=== PATIENT | male | born 1980 | race African-American/Black ===

== ENCOUNTER 2016-05-17 13:42 | Emergency (ER) | payer OTHER ==
[2016-05-17] MEDS ORDERED: NS 0.9% 1000 ML* 2,000 ML IV ONE (14:26)
[2016-05-17] MEDS ORDERED: Metoclopramide IV* 5 MG/ML 2 ML VIAL IV ONE (14:26)
[2016-05-17] MEDS ORDERED: diPHENhydraMINE IV* 50 MG/ML 1 ml VIAL (BENADRYL) IM ONE (14:26)
[2016-05-17] MEDS ORDERED: Ondansetron INJ* 2 MG/ML VIAL IV ONE (14:26)
[2016-05-17] MEDS ORDERED: Magnesium Sulfate 1 GM IV* 1 GM/100 ML BAG IV ONE (14:28)
[2016-05-17 14:40] LABS: Hematocrit 47 % (42-52); Mean Corpuscular HGB Conc 32 g/dl (31-36); Mean Corpuscular Hemoglobin 27 pg (27-31); Mean Corpuscular Volume 83 fL (80-94); Mean Platelet Volume 8 um3 (7.4-10.4); Red Blood Count 5.63 10^6/ul (4.0-5.4); Red Cell Distribution Width 13 % (10.5-15); White Blood Count 6.7 10^3/ul (3.5-10.8)
[2016-05-17 14:54] LABS: ALT 22 U/L (7-52); AST 18 U/L (13-39); Albumin 4.7 g/dL (3.2-5.2); Alkaline Phosphatase 89 U/L (34-104); Amylase 56 U/L (29-103); Anion Gap 8 mmol/L (2-11); BUN/Creatinine Ratio 12.2 (8-20); Blood Urea Nitrogen 14 mg/dL (6-24); C Reactive Protein 3.63 mg/L (< 5.00); CO2 Carbon Dioxide 31 mmol/L (22-32); Calcium 10.1 mg/dL (8.6-10.3); Chloride 97 mmol/L (101-111); EGFR African American 94.2 (>60); EGFR Non-African American 73.2 (>60); Globulin 3.6 g/dL (2-4); Glucose 89 mg/dL (70-100); Lipase < 10 U/L (11.0-82.0); Potassium 3.8 mmol/L (3.5-5.0); Sodium 136 mmol/L (133-145); Total Protein 8.3 g/dL (6.4-8.9)
--- NOTE | 2016-05-17 14:59 | RAD ---
HISTORY: Headache after weightlifting COMPARISONS: None TECHNIQUE: Multiple contiguous axial CT scans were obtained of the head without intravenous contrast. FINDINGS: HEMORRHAGE/INFARCT: There is parenchymal hemorrhage along the splenium the corpus callosum. There is extension into the right lateral ventricle., And into the third and fourth ventricles MASSES/SHIFT: There is no mass or shift. EXTRA-AXIAL SPACES: There are no extra-axial fluid collections. SULCI AND VENTRICLES: As noted above, there is intraventricular hemorrhage within the right lateral ventricle and into the third and fourth ventricles CEREBRUM: As noted above, there is hemorrhage tracking along the splenium of the corpus callosum BRAINSTEM: There are no focal parenchymal abnormalities. CEREBELLUM: There are no focal parenchymal abnormalities. VESSELS: The vessels are grossly normal. PARANASAL SINUSES: The paranasal sinuses are clear. ORBITS: The orbits are unremarkable. BONES AND SOFT TISSUE: No bone or soft tissue abnormalities are noted. OTHER: None IMPRESSION: 1. 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 THE DIFFERENTIAL INCLUDES ANEURYSMAL HEMORRHAGE. RECOMMEND FURTHER EVALUATION WITH CT ANGIOGRAPHY OF THE HEAD. 2. PRELIMINARY FINDINGS WERE DISCUSSED WITH DR. FUCHS AT APPROXIMATELY 2:55 PM ON MAY 17, 2016.
[2016-05-17] MEDS ORDERED: Iohexol 350* (CONTRAST) 500 ML MDV IV ONE (15:07)
--- NOTE | 2016-05-17 15:40 | ED ---
Headache - HPI Summary HPI Summary: Patient is incarcerated. He was lifting weights two days ago when he felt a sharp pain in his head. He has since had "the worst RUIZ he has ever had". He denies a history of headaches. He has been staying in bed in shelter, and not participating in any activities. He has felt nauseous and had an upset stomach as well. He denies fever, chills, neurological defects, vision changes, or neck pain. - History Of Current Complaint Chief Complaint: EDHeadache Stated Complaint: ABD PAIN Time Seen by Provider: 05/17/16 13:55 Hx Obtained From: Patient Onset/Duration: Sudden Onset, Started days ago - 2, Still Present Initially Headache Was: "Worst Headache Ever" Currently Pain Is: Severe Timing: Constant Character: Sharp, Pressure - frontal Location of Headache: Frontal Aggravating Factor: Exertion, Position Change, Bright Lights Allevating Factors: Nothing Associated Signs And Symptoms: Nausea - Allergies/Home Medications Allergies/Adverse Reactions: Allergies Allergy/AdvReac Type Severity Reaction Status Date / Time No Known Allergies Allergy Verified 05/17/16 16:20 Home Medications: Home Medications Ibuprofen TAB* [Motrin TAB* 800 MG] 800 mg PO BID PRN 05/17/16 [History Confirmed 05/17/16] LoraTADine TAB(NF) [Claritin TAB(NF)] 10 mg PO DAILY 05/17/16 [History Confirmed 05/17/16] PMH/Surg Hx/FS Hx/Imm Hx Previously Healthy: Yes Endocrine/Hematology History: Denies: Hx Diabetes Infectious Disease History: Denies: Traveled Outside the [place] in Last 30 Days - Family History Known Family History: Positive: None - Social History Occupation: Unemployed - incarcerated Lives: [facility] - shelter Alcohol Use: None Substance Use Type: Reports: None Smoking Status (MU): Never Smoked Tobacco Review of Systems Negative: Fever Positive: Photophobia. Negative: Blurred Vision, Diplopia Negative: Ear Ache Negative: Chest Pain Negative: Shortness Of Breath Positive: Nausea Negative: Myalgia, Edema Negative: Bruising Positive: Headache. Negative: Weakness, Paresthesia, Numbness All Other Systems Reviewed And Are Negative: Yes Physical Exam Triage Information Reviewed: Yes Vital Signs On Initial Exam: Initial Vitals Temp Pulse Resp BP Pulse Ox 100 F 58 16 152/70 100 05/17/16 13:47 05/17/16 13:47 05/17/16 13:47 05/17/16 13:47 05/17/16 13:47 Vital Signs Reviewed: Yes Appearance: Positive: Well-Nourished, Ill-Appearing, Pain Distress Skin: Positive: Warm, Skin Color Reflects Adequate Perfusion, Dry, Soft Head/Face: Positive: Normal Head/Face Inspection Eyes: Positive: EOMI, ANAT, Conjunctiva Clear ENT: Positive: Hearing grossly normal, Pharynx normal, TMs normal Neck: Positive: Supple, Nontender, No Lymphadenopathy Respiratory/Lung Sounds: Positive: Clear to Auscultation, Breath Sounds Present Cardiovascular: Positive: Bradycardia Abdomen Description: Positive: Nontender, Soft. Negative: CVA Tenderness (R), CVA Tenderness (L), Distended, Guarding Bowel Sounds: Positive: Present Musculoskeletal: Negative: Edema Left, Edema Right Neurological: Positive: Sensory/Motor Intact, Alert, Oriented to Person Place, Time, CN Intact II-III, Facial Symmetry, Speech Normal. Negative: Disoriented Psychiatric: Positive: Affect/Mood Appropriate AVPU Assessment: Alert - [place] Coma Scale Coma Scale Total: 15 Diagnostics - Vital Signs Vital Signs Temp Pulse Resp BP Pulse Ox 05/17/16 13:47 100 F 58 16 152/70 100 - Laboratory Lab Results: Lab Results 05/17/16 05/17/16 Range/Units 14:30 14:30 WBC 6.7 (3.5-10.8) 10^3/ul RBC 5.63 H (4.0-5.4) 10^6/ul Hgb 15.0 (14.0-18.0) g/dl Hct 47 (42-52) % MCV 83 (80-94) fL MCH 27 (27-31) pg MCHC 32 (31-36) g/dl RDW 13 (10.5-15) % Plt Count 229 (150-450) 10^3/ul MPV 8 (7.4-10.4) um3 Neut % (Auto) 76.1 (38-83) % Lymph % (Auto) 15.7 L (25-47) % [place] % (Auto) 7.5 (1-9) % Eos % (Auto) 0.4 (0-6) % Baso % (Auto) 0.3 (0-2) % Absolute Neuts (auto) 5.1 (1.5-7.7) 10^3/ul Absolute Lymphs (auto) 1.0 (1.0-4.8) 10^3/ul Absolute Monos (auto) 0.5 (0-0.8) 10^3/ul Absolute Eos (auto) 0 (0-0.6) 10^3/ul Absolute Basos (auto) 0 (0-0.2) 10^3/ul Absolute Nucleated RBC 0 10^3/ul Nucleated RBC % 0 Sodium 136 (133-145) mmol/L Potassium 3.8 (3.5-5.0) mmol/L Chloride 97 L (101-111) mmol/L Carbon Dioxide 31 (22-32) mmol/L Anion Gap 8 (2-11) mmol/L BUN 14 (6-24) mg/dL Creatinine 1.15 (0.67-1.17) mg/dL Est GFR ( Amer) 94.2 (>60) Est GFR (Non-Af Amer) 73.2 (>60) BUN/Creatinine Ratio 12.2 (8-20) Glucose 89 (70-100) mg/dL Calcium 10.1 (8.6-10.3) mg/dL Total Bilirubin 0.90 (0.2-1.0) mg/dL AST 18 (13-39) U/L ALT 22 (7-52) U/L Alkaline Phosphatase 89 (34-104) U/L C-Reactive Protein 3.63 (< 5.00) mg/L Total Protein 8.3 (6.4-8.9) g/dL Albumin 4.7 (3.2-5.2) g/dL Globulin 3.6 (2-4) g/dL Albumin/Globulin Ratio 1.3 (1-3) Amylase 56 (29-103) U/L Lipase < 10 L (11.0-82.0) U/L Result Diagrams: 05/17/16 14:30 05/17/16 14:30 Lab Statement: Any lab studies that have been ordered have been reviewed, and results considered in the medical decision making process. 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 The nidus measures less than 3cm in dimension. The venous drainage is deep. CT Interpretation Completed By: Radiologist Headache Course/Dx - Course Course Of Treatment: Patient's care was discussed with Dr. Hodges, ED attending, and Dr. Zendejas, with neurosurgery. He will be transfered to a higher level of care as per Dr. Zendejas. - Diagnoses Differential Diagnosis/HQI/PQRI: CVA, TIA, Epidural Hematoma, Subdural Hematoma , Migraine, Sinus Headache, Subarachnoid Hemorrhage, Temporal Arteritis, Tension Headache Provider Diagnoses: Intracranial hemorrhage, spontaneous intraparenchymal, due to cerebral AVM, acute - Physician Notifications Discussed Care Of Patient With: Dr. Zendejas, neurosurgery. Recommended transfer to a higher level of care. Time Discussed With Above Provider: 15:50 Instructed by Provider To: Transfer Admit/Transition Orders Completed By ED Provider: Yes Reason For Transfer: Specialist unable to manage this patient. Discharge - Discharge Plan Condition: Stable Disposition: TRANS HIGHER L OF CARE FAC Referrals: Jake PARDO,Jayme Beck [Primary Care Provider] -
--- NOTE | 2016-05-17 15:48 | RAD ---
HISTORY: Aneurysm rupture, intraparenchymal hemorrhage COMPARISONS: Head CT dated January 14, 2017 TECHNIQUE: Multiple contiguous axial CT scans were obtained of the head and neck After the administration of nonionic intravenous contrast timed to the systemic arterial phase of contrast enhancement. Coronal and sagittal multiplanar reformations are submitted for review. Multiple 3-D maximum intensity projection reconstructions are also submitted for review. FINDINGS: CTA NECK: AORTIC ARCH: There is a bovine configuration, with the left common carotid artery originating from the brachiocephalic trunk. There is no ostial or proximal stenosis of the cephalic great vessels. RIGHT VERTEBRAL ARTERY: The right vertebral artery is patent along its course, without stenosis. LEFT VERTEBRAL ARTERY: The left vertebral artery is patent along its course, without stenosis. DOMINANCE: The vertebral arteries are codominant. RIGHT COMMON CAROTID ARTERY: The right common carotid artery is patent. The right carotid bifurcation occurs at C5-C6 RIGHT INTERNAL CAROTID ARTERY: There is no right internal carotid artery stenosis by NASCET criteria. RIGHT EXTERNAL CAROTID ARTERY: The right external carotid artery is unremarkable. LEFT COMMON CAROTID ARTERY: The left common carotid artery is patent. The left carotid bifurcation occurs at C5 LEFT INTERNAL CAROTID ARTERY: There is no left internal carotid artery stenosis by NASCET criteria. LEFT EXTERNAL CAROTID ARTERY: The left external carotid artery is unremarkable. VENOUS CIRCULATION: The venous system is unremarkable. SALIVARY GLANDS: The parotid glands, submandibular glands, sublingual glands are normal. NASAL CAVITY/NASOPHARYNX: The nasal cavity and nasopharynx are normal. ORAL CAVITY/OROPHARYNX: The oral cavity is obscured by streak artifact from dental amalgam. The visualized oral cavity and oropharynx are unremarkable. LARYNGEAL APPARATUS/HYPOPHARYNX: The laryngeal apparatus and hypopharynx are normal. UPPER AIRWAY/UPPER ESOPHAGUS: The visualized upper airway and esophagus are normal. LUNG APICES: The lung apices are clear. THYROID GLAND: The thyroid gland is normal. LYMPH NODES: There is no lymphadenopathy by size criteria. BONES AND SOFT TISSUES: Mild degenerative changes are noted most pronounced at C5-C6 CTA HEAD: INTRACRANIAL CIRCULATION: There is a cluster of serpiginous vessels consistent with an AVM nidus measuring approximately 1.8 x 1.1 x 2.6 cm in size.. This is located to the right of midline along the splenium of the corpus callosum. Arterial supply is predominantly from the pericallosal branch of the right anterior cerebral artery, though there is likely supplied from the left pericallosal anterior cerebral artery. The venous drainage is deep through the vein of [place] and the internal cerebral veins. There is no appreciable flow-related aneurysm. Elsewhere, there is no aneurysm, vascular malformation, occlusion, or stenosis. The anterior communicating artery complex is clear. Bilateral posterior communicating arteries are identified. VENOUS CIRCULATION: The venous system is unremarkable. PERFUSION: There is no obvious parenchymal perfusion deficit. HEMORRHAGE/INFARCT: As noted on the previous CT examination, there is hemorrhage centered on the splenium of the corpus callosum with intraventricular extension MASSES/SHIFT: There is no mass or shift. EXTRA-AXIAL SPACES: There are no extra-axial fluid collections. SULCI AND VENTRICLES: As noted above, there is intraventricular hemorrhage in the lateral third and fourth ventricles. There is no appreciable ventricular megaly. CEREBRUM: As noted above, there is hemorrhage of the splenium of the corpus callosum with intraventricular extension BRAINSTEM: There are no focal parenchymal abnormalities. CEREBELLUM: There are no focal parenchymal abnormalities. PARANASAL SINUSES: The paranasal sinuses are clear. ORBITS: The orbits are unremarkable. BONES AND SOFT TISSUE: No bone or soft tissue abnormalities are noted. OTHER: There is no abnormal enhancement. IMPRESSION: 1. 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 THE NIDUS MEASURES LESS THAN 3 CM IN DIMENSION. THE VENOUS DRAINAGE IS DEEP. THE ARTERIAL SUPPLY IS PREDOMINANTLY FROM THE PERICALLOSAL BRANCHES OF THE ANTERIOR CEREBRAL ARTERIES BILATERALLY, GREATER ON THE RIGHT THAN ON THE LEFT. 2. AGAIN NOTED IS INTRAPARENCHYMAL HEMORRHAGE OF THE SPLENIUM OF THE CORPUS CALLOSUM WITH INTRAVENTRICULAR EXTENSION. THERE IS NO VENTRICULOMEGALY. 3. NO INTERNAL CAROTID ARTERY STENOSIS BY NASCET CRITERIA PRELIMINARY FINDINGS WERE DISCUSSED WITH SHIRLEY JOSEPH APPROXIMATELY 3:40 PM JANUARY 14, 2017. CPT II Codes: 3100F
[2016-05-17] MEDS ORDERED: hydrALAZINE IV* 20 MG/ML VIAL ONE (16:17)
[2016-05-17] MEDS ORDERED: IVPREMIX ONE (16:18)
[2016-05-17] MEDS ORDERED: NICARDIPINE 0.1 MG/ML ONE (16:18)
[2016-05-17] MEDS ORDERED: hydrALAZINE IV* 20 MG/ML VIAL IV SLOW PU ONE (16:18)
[2016-05-17] MEDS ORDERED: niCARdipine 0.1MG/ML IVPREMIX* 20 MG/200 ML BAG IV ONE (16:18)
[2016-05-17] MEDS ORDERED: NS 0.9% 1000 ML* 1,000 ML IV SCH (16:30)
[2016-05-17] MEDS ORDERED: Acetaminophen TAB* 325 MG PO ONE (19:56)
[2016-05-17 20:16] VITALS: BP 131/63
[2016-05-17] MEDS ORDERED: niCARdipine 0.1MG/ML IVPREMIX* 20 MG/200 ML BAG IV SCH (21:00)
--- NOTE | 2016-07-19 07:52 | ED ---
Iona Sparks [place], scribed for David Vásquez MD on 05/17/16 at 2008 . Progress - Progress Note Progress Note: Dr. Zendejas directs that the patient to be transferred to [facility] of [facility]. Re-evaluated the patient before transfer Course/Dx - Course Course Of Treatment: Patient's care was discussed with Dr. Hodges, ED attending, and Dr. Zendejas, with neurosurgery. He will be transfered to a higher level of care as per Dr. Zendejas. - Diagnoses Provider Diagnoses: Intracranial hemorrhage, spontaneous intraparenchymal, due to cerebral AVM, acute - Provider Notifications Discussed Care Of Patient With: Dr. Zendejas, neurosurgery. Recommended transfer to a higher level of care. Time Discussed With Above Provider: 15:50 Instructed by Provider To: Transfer Admit/Transition Orders Completed By ED Provider: Yes Reason For Transfer: Specialist unable to manage this patient. The documentation as recorded by the Iona perkins Michael accurately reflects the service I personally performed and the decisions made by , David Vásquez MD.
== END 2016-05-17 20:19 | disposition short-term general hospital (02) ==
LOC: EDBD → ED 13:42
DX: I62.9 Nontraumatic intracranial hemorrhage, unspecified (principal); Q28.2 Arteriovenous malformation of cerebral vessels; R11.0 Nausea; R51 Headache
CPT/HCPCS: 36415; 70450; 70496; 70498; 80053; 82150; 83690; 85025; 86140; 96374; 99282; A9270-GY; J0360; J1200; J2405; J2765; J3475; Q9967

== ENCOUNTER 2016-06-05 09:34 | Emergency (ER) | payer OTHER ==
--- NOTE | 2016-06-05 10:18 | RAD ---
HISTORY: Headache COMPARISONS: May 17, 2016 TECHNIQUE: Multiple contiguous axial CT scans were obtained of the head without intravenous contrast. FINDINGS: HEMORRHAGE/INFARCT: There is no hemorrhage or acute infarct. MASSES/SHIFT: There is no mass or shift. EXTRA-AXIAL SPACES: There are no extra-axial fluid collections. SULCI AND VENTRICLES: The sulci and ventricles are normal in size and position for the patient's stated age. CEREBRUM: There are no focal parenchymal abnormalities. BRAINSTEM: There are no focal parenchymal abnormalities. CEREBELLUM: There are no focal parenchymal abnormalities. VESSELS: The vessels are grossly normal. PARANASAL SINUSES: The paranasal sinuses are clear. ORBITS: The orbits are unremarkable. BONES AND SOFT TISSUE: No bone or soft tissue abnormalities are noted. OTHER: None IMPRESSION: NO ACUTE INTRACRANIAL PATHOLOGY. THERE HAS BEEN INTERVAL RESOLUTION OF THE PARENCHYMAL AND INTRAVENTRICULAR HEMORRHAGE NOTED ON THE PREVIOUS HEAD CT.
[2016-06-05 11:01] VITALS: BP 123/71
--- NOTE | 2016-06-05 11:32 | ED ---
Musa Sparks [place], scribed for Bruce Fierro MD on 06/05/16 at 1043 . Headache - HPI Summary HPI Summary: Patient is a 35 y/o male who presents to the ED per EMS with a frontal headache for 2 days. He describes the pain as pressure. He reports diaphoresis, but denies changes in vision. EMS reports he did not have surgery, but had a brain bleed as of 3 weeks ago. - History Of Current Complaint Stated Complaint: HEADACHE Time Seen by Provider: 06/05/16 09:46 Hx Obtained From: Patient, EMS Onset/Duration: Started days ago - 2 days. Currently Pain Is: Moderate Character: Pressure Location of Headache: Frontal Aggravating Factor: Nothing Allevating Factors: Nothing - Allergies/Home Medications Allergies/Adverse Reactions: Allergies Allergy/AdvReac Type Severity Reaction Status Date / Time No Known Allergies Allergy Verified 05/17/16 16:20 PMH/Surg Hx/FS Hx/Imm Hx Endocrine/Hematology History: Denies: Hx Diabetes - Family History Known Family History: Negative: Cardiac Disease, Diabetes - Social History Alcohol Use: None Hx Substance Use: No Substance Use Type: Reports: None Hx Tobacco Use: No Smoking Status (MU): Never Smoked Tobacco Review of Systems Negative: Fever Positive: Headache All Other Systems Reviewed And Are Negative: Yes Physical Exam Triage Information Reviewed: Yes Vital Signs On Initial Exam: Initial Vitals Pulse BP Pulse Ox 55 128/90 100 06/05/16 10:00 06/05/16 10:00 06/05/16 10:00 Vital Signs Reviewed: Yes Appearance: Positive: Well-Appearing, No Pain Distress Skin: Positive: Warm, Skin Color Reflects Adequate Perfusion, Dry Head/Face: Positive: Normal Head/Face Inspection Eyes: Positive: Normal Neck: Positive: Supple, Nontender Respiratory/Lung Sounds: Positive: Clear to Auscultation, Breath Sounds Present Cardiovascular: Positive: RRR Abdomen Description: Positive: Nontender, Soft Bowel Sounds: Positive: Present Musculoskeletal: Positive: Normal Neurological: Positive: Normal Psychiatric: Positive: Normal, Affect/Mood Appropriate Diagnostics - Vital Signs Vital Signs Temp Pulse Resp BP Pulse Ox 06/05/16 11:00 98.2 F 57 18 123/71 99 06/05/16 10:58 58 117/69 100 06/05/16 10:30 54 113/76 99 06/05/16 10:04 98.5 F 69 20 128/90 100 06/05/16 10:00 55 128/90 100 - Laboratory Lab Statement: Any lab studies that have been ordered have been reviewed, and results considered in the medical decision making process. - CT BRAIN CT Interpretation Completed By: Radiologist - IMPRESSION: NO ACUTE INTRACRANIAL PATHOLOGY. THERE HAS BEEN INTERVAL RESOLUTION OF THE PARENCHYMAL AND INTRAVENTRICULAR HEMORRHAGE NOTED ON THE PREVIOUS HEAD CT. Re-Evaluation - Re-Evaluation First Eval Re-Evaluation Time: 10:44 Comment: Discussed plan with pt. He is agreeable. Headache Course/Dx - Course Course Of Treatment: Mr. Felix reports a history of 3 days of a frontal RUIZ. He was transferred to [place] from here after a valslava bleed from a AVM. He says that he signed out AMA at the time but this history is confusing. He had a CT here which should only resolution of his former sentinel bleed. I spoke with Dr. Zendejas who reiterated that he should have surgery definitively but could go back to [place] for now. The patient wants to go back and F/U with [place]. - Diagnoses Provider Diagnoses: Headache - Physician Notifications Discussed Care Of Patient With: Dr. Zendejas (Neuro Surgeon) @ 1042. Discharge - Discharge Plan Condition: Stable Disposition: HOME Patient Education Materials: General Headache (ED) Referrals: Jake PARDO,Jayme Beck [Primary Care Provider] - Additional Instructions: Follow up with PCP. The documentation as recorded by the Musa perkins [place] accurately reflects the service I personally performed and the decisions made by me, Bruce Fierro MD.
== END 2016-06-05 11:27 | disposition home or self-care (01) ==
LOC: ED 09:34
DX: R51 Headache (principal)
CPT/HCPCS: 70450; 99282